=== PATIENT | male | born 1965 | race Caucasian/White ===

== ENCOUNTER 2017-01-23 16:56 | Emergency (ER) | payer MEDICAID ==
[~2017-01-23] VITALS: Ht 185.4 cm; Wt 99.4 kg
[~2017-01-23 16:56] MED LIST: ADVAIR PO; ALBU8.5H3 INH; ALBUTERAL PO; FLUT1DIS IH; GABA300C10 PO; HYDR-3307 PO; LOSA100T6 PO; LOSARTAN PO; TEMA15CA PO; [UNRECOGNIZED DRUG - OTHER] PO
[2017-01-23] MEDS ORDERED: SODIUM CHLORIDE FLUSH 10ML SYR IVF ONE (17:00)
[2017-01-23] MEDS ORDERED: SODIUM CHLORIDE 0.9% 1,000 ML IV ONE (17:00)
[2017-01-23] MEDS ORDERED: ALBUTEROL/IPRATROPIUM 2.5MG/0.5MG, 3 ML NPPB ONE (17:30)
[2017-01-23] MEDS ORDERED: ALBUTEROL/IPRATROPIUM 2.5MG/0.5MG, 3 ML ONE (17:36)
[2017-01-23] MEDS ORDERED: ALBUTEROL SULFATE 2.5 MG/3 ML ONE (17:41)
[2017-01-23 17:47] LABS: HEMOGLOBIN 17.6 g/dL (13.7-18.0)
[2017-01-23 17:53] LABS: BLOOD UREA NITROGEN 17 mg/dL (7-18)
[2017-01-23] MEDS ORDERED: ALBUTEROL SULFATE 2.5 MG/3 ML NPPB ONE (18:00)
[2017-01-23 19:42] VITALS: BP 118/83
== END 2017-01-23 19:45 | disposition home or self-care (01) ==
LOC: ED 17:59
DX: J45.41 Moderate persistent asthma with (acute) exacerbation (principal); Z87.891 Personal history of nicotine dependence
CPT/HCPCS: 36415; 71010; 80048; 82040; 85025; 93005; 94640; 96360; 96361; 99285; J7030; J7512; J7613; J7620

== ENCOUNTER 2017-02-19 07:30 | Emergency (ER) | payer MEDICAID ==
[~2017-02-19] VITALS: Ht 180.3 cm; Wt 97.9 kg
[2017-02-19] MEDS ORDERED: OXYcodone/APAP 5/325MG TABLET PO ONE ×3 (08:00→11:30)
[2017-02-19] MEDS ORDERED: DIAZEPAM 5 MG TABLET PO ONE (08:00)
[2017-02-19] MEDS ORDERED: DIAZEPAM 5 MG TABLET ONE (08:23)
[2017-02-19] MEDS ORDERED: OXYcodone/APAP 5/325MG TABLET ONE ×2 (08:23→09:37)
[2017-02-19 10:02] LABS: BLOOD UREA NITROGEN 15 mg/dL (7-18)
[2017-02-19 10:52] VITALS: BP 124/96
== END 2017-02-19 11:04 | disposition home or self-care (01) ==
LOC: ED 08:53
DX: M25.511 Pain in right shoulder (principal); J45.909 Unspecified asthma, uncomplicated; F12.10 Cannabis abuse, uncomplicated
CPT/HCPCS: 36415; 72050; 72072; 73030; 80048; 82040; 85025; 86141; 99285; J7512

== ENCOUNTER → 2017-05-13 | Outpatient (CLI) | payer MEDICAID | END | disposition home or self-care (01) | LOC: CARD 16:17 | PROVIDERS: ATTEND Internal Medicine Critical Care Medicine | DX: J45.909 Unspecified asthma, uncomplicated (principal) | CPT/HCPCS: 94060; 94726; 94729 ==